=== PATIENT | female | born 1980 | race Hispanic/Latino ===

== ENCOUNTER 2017-12-31 14:32 | Emergency (ER) | payer SELFPAY ==
[2017-12-31 15:04] LABS: #Eosinphils 0.1 thou/uL (0.0-0.7); #Monocytes 0.4 thou/uL (0.11-0.59); #Neutrophils 5.2 thou/uL (1.40-6.50); %Basophils 0.2 % (0.0-1.0); %Eosinophils 0.8 % (0.0-10.0); %Lymphocytes 15.4 % (21.0-51.0); %Neutrophils 77.6 % (42.0-75.0); Hemoglobin 12.3 g/dL (12.0-16.0); Mean Corpuscular HGB CONC 34.7 g/dL (32.0-36.0); Mean Corpuscular Hemoglobin 30.7 pg (27.0-31.0); Mean Corpuscular Volume 88.5 fL (78.0-98.0); Mean Platelet Volume 8.6 fL (7.4-10.4); Platelet Count 199 thou/uL (130-400); RBC Distribution Width 12.5 % (11.5-14.5); Red Blood Cell (RBC) Count 4.02 mill/uL (4.20-5.40); White Blood Cell (WBC) Count 6.7 thou/uL (4.8-10.8)
[2017-12-31 15:22] LABS: Anion Gap 10 mmol/L (10-20); BUN (Urea Nitrogen) 8 mg/dL (7.0-18.7); Calc. Creatinine Clearance 0 mL/min (70-130); Calcium 9.2 mg/dL (7.8-10.44); Carbon Dioxide 21 mmol/L (22-29); Chloride 106 mmol/L (98-107); Estimated GFR-MDRD Greater than 90; Glucose 95 mg/dL (70-105); Potassium 3.4 mmol/L (3.5-5.1); Sodium 134 mmol/L (136-145)
--- NOTE | 2017-12-31 15:29 | ULT ---
ULTRASOUND LESS THAN 14 WEEKS: TECHNIQUE: Transabdominal and vascular duplex with color and spectral Doppler imaging is performed. HISTORY: This 37-year-old female is 7 weeks with vaginal bleeding. FINDINGS: The uterus measures 10.7 x 7.8 x 2.1 cm. The right ovary measures 2.3 x 1.7 x 2.5 cm. The left ovary measures 1.9 x 2.4 x 2.8 cm with an approximately 1.0 x 2.0 x 2.3 cm possible corpus l uteum cyst in the left ovary. Single viable intrauterine is noted. Moderate-size retrocho rionic hemorrhage measuring approximately 1.2 cm in thickness and approximately 5 cm in length. [place]-rump length equals 3.2 cm, equivalent to 10 weeks 1 day gestation. Gestational sac measures 4. 3 equivalent to 9 weeks 6 days of gestation. IMPRESSION: Evidence for a single viable intrauterine fetus at approximately 10 weeks 0 days gestation with EDC o f 07/29/18. Fairly large extrachorionic hemorrhage. Depending upon concern, continued short-term foll owup serum HCGs is suggested, if there remains of viability, a followup ultrasound study might be of benefit as well. POS: [facility]
[2017-12-31 15:39] LABS: Bilirubin Negative (Negative); Blood, Urine Large (Negative); Clarity CLEAR (Clear); Glucose, Urine (Dipstick) Negative (Negative); Leukocyte Negative (Negative); Nitrite Negative (Negative); Protein, Urine (Dipstick) Negative (Neg-Trace); Specific Gravity, Urine 1.007 (1.002-1.036); Urobilinogen 0.2 mg/dL (0.2-1.0)
[2017-12-31 15:42] LABS: Bacteria/HPF None Seen HPF (None Seen); Hyaline Casts/LPF 0-3 HYALINE CAST LPF (0-3 Hyaline); Pathc Cast-AUWi Flag 0.14 (0-2.49); RBC/HPF GREATER THAN 50-TNTC HPF (0-3); Squamous Epithelial 0-3 HPF (0-3); WBC/HPF 0-3 HPF (0-3)
== END 2017-12-31 16:30 | disposition home or self-care (01) ==
LOC: ERS 14:32
DX: O20.0 Threatened abortion (principal); O99.011 Anemia complicating pregnancy, first trimester; Z3A.01 Less than 8 weeks gestation of pregnancy
CPT/HCPCS: 36415; 76856; 80048; 81003; 81015; 84702; 85025; 86900; 86901; 93976

== ENCOUNTER 2018-07-10 16:47 | Day surgery (SDC) | payer MEDICAID, OTHER ==
[2018-07-10 17:24] VITALS: BP 122/79; TEMP 98.1; BMI 30.2
--- NOTE | 2018-07-10 18:47 | ULT ---
LIMITED OBSTETRICAL ULTRASOUND FOR BIOPHYSICAL PROFILE 07/10/18 INDICATION: Decreased movement felt in 37 week gestation. COMPARISON: None. FINDINGS: There is a single live intrauterine gestation with cardiac activity noted at 132 beats per minute. Th e COURTNEY was within normal limits measuring 12.1 cm. tone was 2 out of 2. breathing was 2 out of 2. movement was 2 out of 2. Amniotic fluid level was 2 out of 2. The placenta is fundal in location. The fetus is in vertex presentation. IMPRESSION: Biophysical profile 8 out of 8. POS: [facility]
--- NOTE | 2018-07-11 04:07 | SS ---
DATE OF ADMISSION: 07/10/2018 DATE OF DISCHARGE: 07/10/2018 REGULAR PHYSICIAN: Isamar Pavon MD. EVALUATING PHYSICIAN: Ben Cooper MD CHIEF COMPLAINT: Decreased movement. HISTORY OF PRESENT ILLNESS: Ms. Gutierrez is a 38-year-old , G6, P4, with an estimated date of confinement of 07/27/2018, who presents complaining of decreased movement over the last 24 hours. She denies ruptured membranes or vaginal bleeding. Her care has been with Dr. Pavon. PAST OBSTETRICAL HISTORY: She has had one section followed by three successful VBACs. PAST MEDICAL HISTORY: None. PAST SURGICAL HISTORY: as above. CURRENT MEDICATIONS: vitamins and iron. ALLERGIES: NO KNOWN ALLERGIES. SOCIAL HISTORY: Denies tobacco, alcohol, or drug use. FAMILY HISTORY: Unremarkable. REVIEW OF SYSTEMS: Denies nausea, vomiting, fever, chills, ruptured membranes, or vaginal bleeding. PHYSICAL EXAMINATION: VITAL SIGNS: In triage, her vital signs are stable. She is afebrile. ABDOMEN: Soft, nontender, and gravid. Initially, her heart rate tracing showed no accelerations. She was hydrated with orange juice and began to note movement and had spontaneous accelerations. A biophysical profile was obtained and this scored 8/8. She was placed back on the monitor and continued to have a reactive tracing. No uterine contractions were seen. ASSESSMENT: 1. 37-week intrauterine . 2. Reassuring testing today in triage. PLAN: Patient has been discharged to home. She was encouraged to keep herself hydrated and to eat small regular meals. She voiced understanding of her discharge instructions and will follow up with Dr. Pavon. Job ID: [id number]
== END 2018-07-10 18:57 | disposition home health service (06) ==
LOC: L&D/OP 16:47
PROVIDERS: ATTEND Obstetrics & Gynecology
DX: O36.8130 Decreased fetal movements, third trimester, not applicable or unspecified (principal); Z3A.37 37 weeks gestation of pregnancy; Z98.890 Other specified postprocedural states
CPT/HCPCS: 76819; 99282

== ENCOUNTER 2018-07-30 01:26 | Inpatient (IN) | payer OTHER, SELFPAY ==
[2018-07-30 02:00] VITALS: BMI 32.5
[2018-07-30] MEDS ORDERED: Ibuprofen 800 MG TAB PO PRN (02:13)
[2018-07-30] MEDS ORDERED: Meperidine HCl/PF 25 MG/ML VIAL IM/IV PRN (02:13)
[2018-07-30] MEDS ORDERED: Zolpidem Tartrate 5 MG TAB PO PRN (02:13)
[2018-07-30] MEDS ORDERED: NS / Oxytocin 40 units/1000ml 1,000 ML IV PRN (02:13)
[2018-07-30] MEDS ORDERED: Ondansetron PF 4 MG/2 ML Vial IVP PRN ×3 (02:13→03:55)
[2018-07-30] MEDS ORDERED: Lidocaine 1% (PF) 30 ML VIAL SC PRN (02:13)
[2018-07-30] MEDS ORDERED: Butorphanol Tartrate 1 MG/ML VIAL SLOW IVP PRN (02:13)
[2018-07-30] MEDS ORDERED: HYDROcodone/Acetaminophen 5/325 mg Tablet PO PRN ×2 (02:13)
[2018-07-30] MEDS ORDERED: Promethazine HCl 25 MG/ML VIAL IM PRN ×3 (02:13→03:55)
[2018-07-30] MEDS ORDERED: Acetaminophen 500 MG TAB PO PRN (02:13)
[2018-07-30] MEDS ORDERED: Lactated Ringer's 1,000 ML IV SCH (02:15)
[2018-07-30] MEDS ORDERED: NS w/ Oxytocin 10 units 500 ML IV SCH (02:15)
[2018-07-30] MEDS: Lactated Ringer's 1,000 ML IV SCH ×3 (02:30→07:27)
--- NOTE | 2018-07-30 02:35 | PDOC.LDHP ---
Labor and Delivery H&P Chief complaint: contractions HPI: 38 yo LAF presents c/o UCs since earlier last PM. Denies bleeding or SROM. Current gestational age (weeks): 40 Due date: 07/27/17 Dating criteria: last menstrual period Grav: 5 Para: 4 OB History Details: PNC with Dr. Pavon. H/o 1 c/s followed by x 3 Current complications: none Abnormal US findings: No Past Medical History: none Current medications: pre-lionel vitamins Previous surgical history: low tranverse CS Allergies/Adverse Reactions: Allergies Allergy/AdvReac Type Severity Reaction Status Date / Time No Known Allergies Allergy Verified 07/30/18 02:01 Social history: none - Physical Exam Vital signs reviewed and normal: yes General: NAD Heart: RRR Lungs: CTAB Abdomen: gravid Extremeties: trace edema FHT: category 1 Nicolaus contractions every: UCs q 3-5 mins. - Vaginal Exam cm dilated: 4 Effacement: 50% Station: -2 - OB Labs Blood type: O RH: positive Antibody Screen: negative HIV: negative RPR: negative HEPSAg: negative GBS: negative Rubella: immune - Assessment L&D Assessment: term patient in labor (h/o x 3; for CA) - Plan Plan: admit to L&D (Dr. Pavon aware), informed consent obtained, anesthesia consult for pain management
[2018-07-30] MEDS ORDERED: Fentanyl 4 mcg/Bup 0.1% Cadd 100 ML ONE ×2 (02:39→10:54)
[2018-07-30 02:40] LABS: Hemoglobin 13.1 g/dL (12.0-16.0); Mean Corpuscular HGB CONC 34.9 g/dL (32.0-36.0); Mean Corpuscular Hemoglobin 28.7 pg (27.0-31.0); Mean Corpuscular Volume 82.1 fL (78.0-98.0); Mean Platelet Volume 9.2 fL (7.4-10.4); Platelet Count 203 thou/uL (130-400); Red Blood Cell (RBC) Count 4.55 mill/uL (4.20-5.40); White Blood Cell (WBC) Count 6.7 thou/uL (4.8-10.8)
[2018-07-30] MEDS ORDERED: Naloxone HCl 0.4 mg/ml Vial IVP PRN ×4 (02:40→03:55)
[2018-07-30] MEDS ORDERED: Acetaminophen 325 MG TAB PO PRN ×2 (02:40→03:55)
[2018-07-30] MEDS ORDERED: Eucerin (Mineral Oil/Petrolatum,White) 30 gm Jar TOP PRN ×2 (02:40→03:55)
[2018-07-30] MEDS ORDERED: Lactated Ringer's 500 ML IV PRN ×2 (02:40→03:55)
[2018-07-30] MEDS ORDERED: ePHEDrine/0.9% NaCl/PF SYRINGE 50 mg/10 ml SLOW IVP PRN ×2 (02:40→03:55)
[2018-07-30] MEDS ORDERED: diphenhydrAMINE 50 MG/ML VIAL IVP PRN ×2 (02:40→03:55)
[2018-07-30] MEDS ORDERED: Communication Order-Pharmacy FS SCH ×2 (02:45→04:00)
[2018-07-30] MEDS ORDERED: Fentanyl 4 mcg/Bupivacaine 0.1% Cassette 100 ML EPIDURAL SCH (02:45)
[2018-07-30 03:20] LABS: Hep B Surf Ag Non-Reactive S/CO (NonReactive)
[2018-07-30] MEDS ORDERED: Lidocaine 1.5%/Epinephrine 1:200,000 5 ML AMPUL IJ ONE (03:34)
[2018-07-30 04:53] LABS: Syphilis Antibody Nonreactive (Nonreactive); Syphilis Antibody Index 0.04 S/CO (<1.00 Non-Reactive)
[2018-07-30] MEDS ORDERED: diphenhydrAMINE 25 MG CAP PO PRN (15:24)
[2018-07-30] MEDS ORDERED: Misoprostol 200 MCG TAB VAG PRN (15:24)
[2018-07-30] MEDS ORDERED: Preparation H Ointment 28 GM TUBE PR PRN (15:24)
[2018-07-30] MEDS ORDERED: Bisacodyl 10 MG SUPP PR PRN (15:24)
[2018-07-30] MEDS ORDERED: Milk Of Magnesia 30 ML UDCUP PO PRN (15:24)
[2018-07-30] MEDS ORDERED: Benzocaine-Menthol 82.5 ML CAN TOP PRN (15:24)
[2018-07-30] MEDS ORDERED: Lanolin Ointment 7 GM TUBE TOP PRN (15:24)
[2018-07-30] MEDS ORDERED: Adacel (T-DAP) 0.5 ML SYRINGE IM ONE (15:24)
--- NOTE | 2018-07-30 15:27 | PDOC.OPDEL ---
OB Operative/Delivery Note Delivery Dr/Surgeon: Savanah Pre-Delivery Diagnosis: active labor Procedure/Post Delivery Dx: spontaneous vaginal delivery Weeks gestation: 40 Anesthesia: epidural - Additional Findings/Plan Placenta delivered: manual removal Repaired Obstetrical Laceration: none Estimated blood loss: 200ml Post delivery plan: routine recovery
[2018-07-30] MEDS ORDERED: NS / Oxytocin 40 units/1000ml 1,000 ML IV SCH (15:30)
[2018-07-30] MEDS: Ferrous Sulfate 325 MG TAB PO SCH (20:40)
[2018-07-30] MEDS: Ibuprofen 800 MG TAB PO SCH (21:03)
[2018-07-30] MEDS: Docusate Calcium (SURFAK) 240 MG CAP PO SCH (21:03)
[2018-07-31] MEDS: traMADol HCl 50 MG TAB PO PRN ×2 (02:09→10:35)
[2018-07-31] MEDS: Ibuprofen 800 MG TAB PO SCH ×3 (05:20→21:44)
--- NOTE | 2018-07-31 08:15 | PDOC.PP ---
Post Progress Note Post Day #: 1 PO intake tolerated: yes Flatus: yes Ambulation: yes Vital Signs (12 hours) Temp Pulse Resp BP Pulse Ox 07/31/18 05:00 97.7 F 84 16 123/65 07/30/18 23:00 98.9 F 91 16 120/78 07/30/18 20:15 98.1 F 87 16 124/74 99 Weight Weight 196 lb - Physical Examination Abdominal: + bowel sounds, lochia, no distention, appropriately TTP Result Diagrams: 07/30/18 02:31 Additional Labs: Post Labs Blood Type O POSITIVE 07/30/18 02:31 Hep Bs Antigen Non-Reactive S/CO (NonReactive) 07/30/18 02:31 - Assessment/Plan Post day1 from . Doing well. D/c home if baby is discharged. Follow up in 6 weeks.
[2018-07-31] MEDS: Prenatal Vitamin 1 TAB PO SCH (09:01)
[2018-07-31] MEDS: Ferrous Sulfate 325 MG TAB PO SCH ×2 (09:01→16:06)
[2018-07-31] MEDS: Docusate Calcium (SURFAK) 240 MG CAP PO SCH ×2 (09:02→21:44)
[2018-08-01] MEDS: Ibuprofen 800 MG TAB PO SCH (04:52)
[2018-08-01 08:29] VITALS: BP 136/83; TEMP 98.1
[2018-08-01] MEDS: Ferrous Sulfate 325 MG TAB PO SCH (08:40)
[2018-08-01] MEDS: Docusate Calcium (SURFAK) 240 MG CAP PO SCH (09:04)
[2018-08-01] MEDS: Prenatal Vitamin 1 TAB PO SCH (09:05)
== END 2018-08-01 12:00 | disposition home or self-care (01) | DRG 807 ==
LOC: L&D/OP 01:26 → L&D 06:45 → 3SW 18:01
PROVIDERS: ADMIT Obstetrics & Gynecology; ATTEND Obstetrics & Gynecology
PROC: 10E0XZZ Delivery of Products of Conception, External Approach (ICD-10-PCS; principal; 2018-07-30)
DX: O34.211 Maternal care for low transverse scar from previous cesarean delivery (principal); Z37.0 Single live birth; O48.0 Post-term pregnancy; Z3A.40 40 weeks gestation of pregnancy
CPT/HCPCS: 36415; 51702; 85027; 86780; 86850; 86900; 86901; 87340; 90715; 99285; J0595; J2001; J3490

== ENCOUNTER 2018-08-02 00:43 | Emergency (ER) | payer SELFPAY | END 2018-08-02 03:38 | disposition home or self-care (01) | LOC: ERS 00:43 | DX: K64.4 Residual hemorrhoidal skin tags (principal); D50.9 Iron deficiency anemia, unspecified | CPT/HCPCS: 99283 ==

== ENCOUNTER 2020-06-17 01:14 | Emergency (ER) | payer MEDICAID, SELFPAY ==
[2020-06-17 01:47] LABS: #Eosinphils 0.1 thou/uL (0.0-0.7); #Lymphocytes 1.7 thou/uL (1.20-3.40); #Monocytes 0.4 thou/uL (0.11-0.59); #Neutrophils 2.8 thou/uL (1.40-6.50); %Basophils 0.2 % (0.0-1.0); %Eosinophils 2.8 % (0.0-10.0); %Lymphocytes 34.4 % (21.0-51.0); %Monocytes 7.5 % (0.0-10.0); %Neutrophils 55.1 % (42.0-75.0); Hemoglobin 11.9 g/dL (12.0-16.0); Mean Corpuscular HGB CONC 34.7 g/dL (32.0-36.0); Mean Corpuscular Hemoglobin 29.7 pg (27.0-31.0); Mean Corpuscular Volume 85.6 fL (78.0-98.0); Mean Platelet Volume 8.7 fL (7.4-10.4); Platelet Count 237 thou/uL (130-400); RBC Distribution Width 12.5 % (11.5-14.5)
[2020-06-17 01:54] LABS: BHCG - Serum POSITIVE (NEGATIVE); Pregs Control Background? CLEAR/WHITE (CLR/WHITE); Pregs Control Bar Appear? YES (CONTROL BAR)
[2020-06-17 02:22] LABS: Bacteria/HPF None Seen HPF (None Seen); Bilirubin Negative (Negative); Blood, Urine 3+ (Negative); Clarity Extra Turbid (Clear); Glucose, Urine (Dipstick) Normal (Negative); Ketone, Urine Negative (Negative); Leukocyte 25 Leu/uL (Negative); Nitrite Negative (Negative); Protein, Urine (Dipstick) 50 mg/dL (Neg-Trace); RBC/HPF Greater than 50 HPF (0-3); Specific Gravity, Urine 1.017 (1.002-1.036); Squamous Epithelial None Seen HPF (0-3); Urobilinogen Normal mg/dL (Less than 2)
--- NOTE | 2020-06-17 08:00 | ULT ---
PRELIMINARY REPORT/[facility]/EMERGENCY AFTER HOURS PROCEDURE: EXAM: US Obstetrical, Complete <14 weeks CLINICAL HISTORY: Pelvic cramping pain, light vaginal bleeding x 5 days, now heavy vaginal bleeding with clots x 2 days , HCG 2134 TECHNIQUE: Transvaginal and transabdominal imaging of the maternal pelvis and a <14 week gestation with image do cumentation. COMPARISON: None provided. FINDINGS: GESTATION: An intrauterine gestational sac measures 13.4 mm corresponding to 6 weeks 1 day however there is no e vidence for yolk sac or pole UTERUS: Unremarkable. No myometrial mass. Measures 10.0 x 4.7 x 5.7 cm. The endometrium appears thickened a nd heterogeneous CERVIX: Closed. Unremarkable. OVARIES: Unremarkable. No mass. The RIGHT side measures 2.7 x 2.0 x 0.9 cm and demonstrates a 2.1 x 1.4 x 1.1 cm cyst. The LEFT ovary could not be seen FREE FLUID: No free fluid. IMPRESSION: Early empty intrauterine gestational sac ELECTRONICALLY SIGNED BY: Odell Hough MD Jun 17, 2020 2:51:45 AM ADVICE NURSE This report is intended for review by the ordering physician only, in accordance of law. If you recei ve this report in error, please call [facility] at [phone]. FINAL REPORT EMERGENCY AFTER HOURS TRANSABDOMINAL AND TRANSVAGINAL PELVIC ULTRASOUND: I agree with the preliminary report given by [facility]. Recommend correlation with serial serum beta HCG levels and follow-up ultrasound. POS: OFF
== END 2020-06-17 03:11 | disposition home or self-care (01) ==
LOC: ERS 01:14
DX: O03.9 Complete or unspecified spontaneous abortion without complication (principal)
CPT/HCPCS: 36415; 76856; 81003; 81015; 84702; 84703; 85025; 86850; 86900; 86901

== ENCOUNTER 2021-12-09 02:28 | Emergency (ER) | payer SELFPAY ==
[2021-12-09] MEDS ORDERED: Dexamethasone 10 MG/ML VIAL ONE (03:06)
[2021-12-09] MEDS ORDERED: diphenhydrAMINE 25 MG CAP ONE (03:06)
[2021-12-09] MEDS ORDERED: Famotidine 20 MG TAB ONE (03:06)
[2021-12-09] MEDS ORDERED: Acetaminophen 500 MG TAB ONE (03:34)
== END 2021-12-09 03:32 | disposition home or self-care (01) ==
LOC: ERS 02:28
DX: L50.9 Urticaria, unspecified (principal)
CPT/HCPCS: 99282; J1100

== ENCOUNTER 2022-12-12 20:28 | Emergency (ER) | payer OTHER, SELFPAY ==
[2022-12-12 21:09] LABS: #Eosinphils 0.1 thou/uL (0.0-0.7); #Monocytes 0.5 thou/uL (0.11-0.59); #Neutrophils 6.2 thou/uL (1.40-6.50); %Basophils 0.1 % (0.0-1.0); %Eosinophils 1.4 % (0.0-10.0); %Lymphocytes 12.4 % (21.0-51.0); %Neutrophils 79.3 % (42.0-75.0); Hematocrit 30.9 % (36.0-47.0); Hemoglobin 10.4 g/dL (12.0-16.0); Mean Corpuscular HGB CONC 33.7 g/dL (32.0-36.0); Mean Corpuscular Hemoglobin 29.1 pg (27.0-31.0); Mean Corpuscular Volume 86.6 fl (78.0-98.0); Mean Platelet Volume 10.4 fL (7.4-10.4); Platelet Count 245 10x3/uL (130-400); RBC Distribution Width 13.2 % (11.5-14.5); Red Blood Cell (RBC) Count 3.57 mill/uL (4.20-5.40); White Blood Cell (WBC) Count 7.8 10x3/uL (4.8-10.8)
[2022-12-12 21:12] LABS: Bacteria/HPF 3+ HPF (None Seen); Bilirubin Negative (Negative); Blood, Urine Negative (Negative); CAUTI Indications for Culture Pregnancy; Clarity Clear (Clear); Glucose, Urine (Dipstick) 300 mg/dL (Negative); Ketone, Urine 20 mg/dL (Negative); Leukocyte 250 Leu/uL (Negative); Mucous/LPF Rare LPF (<2+); Nitrite Negative (Negative); Protein, Urine (Dipstick) 70 mg/dL (Neg-Trace); RBC/HPF 0-3 HPF (0-3); Specific Gravity, Urine 1.039 (1.002-1.036)
[2022-12-12 21:16] LABS: Urine Culture Reflex Yes Yes
[2022-12-12 21:32] LABS: ALT (SGPT) 8 U/L (8-55); AST (SGOT) 17 U/L (5-34); Albumin 3.5 g/dL (3.5-5.0); Alkaline Phosphatase 110 U/L (40-110); Anion Gap 1 mmol/L (10-20); BUN (Urea Nitrogen) 7 mg/dL (7.0-18.7); Bilirubin, Total 0.2 mg/dL (0.2-1.2); Calc. Creatinine Clearance 0 mL/min (70-130); Calcium 8.7 mg/dL (7.8-10.44); Carbon Dioxide 19 mmol/L (22-29); Chloride 113 mmol/L (98-107); Estimated GFR 94; Globulin 3.8 g/dL (2.4-3.5); Glucose 137 mg/dL (70-105); Lipase 79 U/L (8-78); Potassium 3.4 mmol/L (3.5-5.1); Protein, Total 7.3 g/dL (6.0-8.3); Sodium 130 mmol/L (136-145)
== END 2022-12-12 23:34 | disposition home or self-care (01) ==
LOC: ERS 20:28
DX: K21.00 Gastro-esophageal reflux disease with esophagitis, without bleeding (principal); N39.0 Urinary tract infection, site not specified
CPT/HCPCS: 36415; 76815; 80053; 81001; 83690; 85025; 87086

== ENCOUNTER 2024-03-07 11:24 | Emergency (ER) | payer MEDICAID, SELFPAY | END 2024-03-07 14:02 | disposition home or self-care (01) | LOC: ERS 11:24 | DX: S92.401A Displaced unspecified fracture of right great toe, initial encounter for closed fracture (principal); I10 Essential (primary) hypertension; M25.571 Pain in right ankle and joints of right foot; W22.8XXA Striking against or struck by other objects, initial encounter | CPT/HCPCS: 99283 ==